=== PATIENT | male | born 1995 | race Caucasian/White ===

== ENCOUNTER 2018-06-04 20:23 | Emergency (ER) | payer SELFPAY ==
[~2018-06-04] VITALS: Ht 180.3 cm; Wt 100.0 kg
--- NOTE | 2018-06-04 20:37 | NUR ---
NON COMPLIANT X1YEAR WITH HIS 50MG METOPROLOL WHICH HE SUPPOSE TO TAKE FOR A FIB
[2018-06-04 22:29] VITALS: BP 137/88
== END 2018-06-04 22:30 | disposition home or self-care (01) ==
LOC: ED 21:36
DX: G89.11 Acute pain due to trauma (principal); M25.561 Pain in right knee; W01.0XXA Fall on same level from slipping, tripping and stumbling without subsequent striking against object, initial encounter; Y93.89 Activity, other specified; Y92.830 Public park as the place of occurrence of the external cause; Y99.8 Other external cause status
CPT/HCPCS: 99283